=== PATIENT | female | born 1985 | race Asian ===

== ENCOUNTER 2023-09-02 10:21 | Emergency (ER) | payer OTHER, SELFPAY ==
[2023-09-02 10:33] VITALS: BP 113/66
[2023-09-02 11:02] LABS: Urine Albumin Trace (Neg - Trace); Urine Bilirubin Negative (Negative); Urine Character Slightly Cloudy (Clear); Urine Color Yellow; Urine Glucose Negative (Negative); Urine Ketone Negative (Negative); Urine Leukocyte 2+ (Negative); Urine Nitrite Negative (Negative); Urine Occult Blood 2+ (Negative); Urine Urobilinogen Negative (Neg - 1+)
--- NOTE | 2023-09-02 11:03 | ED.GENMED ---
History of Present Illness
<PUSHPA Avila - Last Filed: 09/02/23 13:11>
General
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
Time Seen by Provider: 09/02/23 10:50
Travel History
Have you had any contact with someone who has COVID-19?: No
Do you have any symptoms of coronavirus? Fever > 100 degrees, chills, cough, shortness of breath, sore throat, loss of taste or smell, muscle aches, or headache?: No
History of Present Illness
History of Present Illness:
This is a 38 year old female with PMH of contact dermatitis who presents for vaginal rash x 5 days. She denies new products or inciting event. She reports she tried OTC Balmex with little relief. She describes the rash as itchy, painful, and
burning. She denies previous episodes similar to this. Patient admits to dysuria. She denies urinary frequency or urgency.
Past History
<PUSHPA Avila - Last Filed: 09/02/23 13:11>
Past History
ED Past Medical History: None
ED Past Surgical History: None
Social History
Tobacco: Non-smoker
Alcohol: None
<Peter Mao DO - Last Filed: 09/02/23 13:21>
Physical Exam
Physical Exam:
Physical Exam
General: no apparent distress, not acutely ill
Neck: No jaundice
Lungs: no acute respiratory distress.
, mild swelling of the labia no vesicular lesions
Neuro: alert and oriented. no focal neurological deficits
Skin: no rash
Psychiatric: well kept. interactive and cooperative
Extremities: no edema.
Course
<PUSHPA Avila - Last Filed: 09/02/23 13:11>
Orders/Labs/Results
Orders:
Orders
09/02/23 10:48
Test Result ONCE
09/02/23 10:55
Urinalysis Reflex To Culture Urgent
Date Specimen was Collected: 09/02/23
Time Specimen was Collected: 10:48
Urine Microscopic Reflex Cult Urgent
Urine,Hcg qualitative screen [HCG, Urine Qualitative Screen] Urgent
Date Specimen was Collected: 09/02/23
Time Specimen was Collected: 10:48
Chlamydia/GC by PCR Urgent
[facility] Source: U
Specimen Description:
Source:: URINE
Date Specimen was Collected: 09/02/23
Time Specimen was Collected: 10:48
Comment: ADDED
Urine Culture Urgent
[facility] Source: U
Specimen Description:
Date Specimen was Collected: 09/02/23
Time Specimen was Collected: 10:48
09/02/23 11:31
Add On- LAB Urgent
Tests Added?: urine gc/chlymdia
09/02/23 11:37
Bedside Glucose- Treatment ONCE
09/02/23 11:45
Fluconazole [Diflucan] 150 mg PO NOW STA
Abnormal Lab Results
09/02/23
10:55
Ur Occult Blood Reflex 2+ A
(Negative)
Leukocyte Esterase Rfl 2+ A
(Negative)
Urine RBC 3-6 A /HPF
(0-2)
Urine WBC (Reflex) 60-70 A /HPF
(0-5)
Urine Bacteria (Reflex) Many A
(Negative)
Vital Signs
Initial and Last Documented VS:
Initial Vital Signs
Temp Pulse Resp BP Pulse Ox
98.7 F 90 18 113/66 99
09/02/23 10:33 09/02/23 10:33 09/02/23 10:33 09/02/23 10:33 09/02/23 10:33
Last Documented Vital Signs
Temp Pulse Resp BP Pulse Ox
98.7 F 90 18 113/66 99
09/02/23 10:33 09/02/23 10:33 09/02/23 10:33 09/02/23 10:33 09/02/23 10:33
<Peter Mao, DO - Last Filed: 09/02/23 13:21>
Orders/Labs/Results
Orders:
Orders
09/02/23 10:48
Test Result ONCE
09/02/23 10:55
Urinalysis Reflex To Culture Urgent
Date Specimen was Collected: 09/02/23
Time Specimen was Collected: 10:48
Urine Microscopic Reflex Cult Urgent
Urine,Hcg qualitative screen [HCG, Urine Qualitative Screen] Urgent
Date Specimen was Collected: 09/02/23
Time Specimen was Collected: 10:48
Chlamydia/GC by PCR Urgent
[facility] Source: U
Specimen Description:
Source:: URINE
Date Specimen was Collected: 09/02/23
Time Specimen was Collected: 10:48
Comment: ADDED
Urine Culture Urgent
[facility] Source: U
Specimen Description:
Date Specimen was Collected: 09/02/23
Time Specimen was Collected: 10:48
09/02/23 11:31
Add On- LAB Urgent
Tests Added?: urine gc/chlymdia
09/02/23 11:37
Bedside Glucose- Treatment ONCE
09/02/23 11:45
Fluconazole [Diflucan] 150 mg PO NOW STA
Abnormal Lab Results
09/02/23
10:55
Ur Occult Blood Reflex 2+ A
(Negative)
Leukocyte Esterase Rfl 2+ A
(Negative)
Urine RBC 3-6 A /HPF
(0-2)
Urine WBC (Reflex) 60-70 A /HPF
(0-5)
Urine Bacteria (Reflex) Many A
(Negative)
Vital Signs
Initial and Last Documented VS:
Initial Vital Signs
Temp Pulse Resp BP Pulse Ox
98.7 F 90 18 113/66 99
09/02/23 10:33 09/02/23 10:33 09/02/23 10:33 09/02/23 10:33 09/02/23 10:33
Last Documented Vital Signs
Temp Pulse Resp BP Pulse Ox
98.7 F 90 18 113/66 99
09/02/23 10:33 09/02/23 10:33 09/02/23 10:33 09/02/23 10:33 09/02/23 10:33
<PUSHPA Avila - Last Filed: 09/02/23 13:11>
*Critical Care Note
Total Time (30-74mins, 75-104mins- exclusive of procedures): Not Applicable
<PUSHPA Avila - Last Filed: 09/02/23 13:11>
Update Note
Update Note:
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 Patient reports similar episode x 4 years ago that was resolved with 1 pill regimen. History and physical consistent with candidiasis. Treat with Diflucan.
ED Attending Note
<PUSHPA Avila - Last Filed: 09/02/23 13:11>
-
Portions of this chart may have been created with voice recognition software.� Occasional wrong word or��sound alike� substitutions may have occurred due to the inherent limitations of voice recognition software.
<Peter Mao DO - Last Filed: 09/02/23 13:21>
ED Attending Note
Patient seen and examined by attending physician: Yes
I performed the substantive portion of visit, reviewed & personally made and approve the management plan that is documented in note by myself or ALVARADO.: Yes
ED Attending Note:
Seen with student examined independently student was able to ascertain full history through the [employer] database admin patient has some vaginal discharge and swelling, history of the same treated with a sounds like Diflucan she is with her , no
lesions that look like herpes urine noted
Discharge Plan
Departure
Patient Disposition: Home (Routine Discharge)
Date of Disposition: 09/02/23
Time of Disposition: 11:38
Patient with high blood pressure during this ER visit?: No
Condition: Good
Discharge Problem:
Yeast dermatitis
Instructions: Yeast Infection (DC)
Prescriptions:
No Action
clobetasol 0.05 % cream
1 applic topical BID 14 Days Qty: 30 0RF
calamine phenolated Lotion
1 applic topical TID PRN (Reason: itching) Qty: 180 0RF
hydroxyzine HCl 25 mg tablet
25 mg PO BID PRN (Reason: itching) Qty: 14 0RF
prednisone 10 mg tablet
See Rx Instructions .ROUTE .COMPLEX Qty: 45 0RF
Rx Instructions:
5 tabs day 1-3, 4 tabs day 4-6, 3 tabs day 7-9, 2 tabs day 10-12, 1 tab day 13-15
Referrals:
Alfonzo Smith MD [Family Provider] - Next open appointment
Interventions
Interventions:
*Risk Screen - Suicide Last Done: 09/02/23 13:02
*General Assessment Last Done: 09/02/23 13:02
*Neglect/Abuse Screening Last Done: 09/02/23 13:02
*ED COVID-19 Vaccine History Last Done: 09/02/23 13:02
*Nursing Disposition Last Done: 09/02/23 13:03
ED-Female Genitourinary Assessment Last Done: 09/02/23 13:02
Discharge Date and Time
Discharge Date/Time: 09/02/23 13:04
[2023-09-02 11:09] LABS: HCG, Urine Qualitative Screen Negative
[2023-09-02 11:18] LABS: Urine White Cell 60-70 /HPF (0-5)
[2023-09-02 11:19] LABS: Urine Bacteria Many (Negative)
[2023-09-02 11:21] LABS: Urine Squamous Cell >30 /LPF (Few)
[2023-09-02] MEDS: DIFLUCAN 150 MG PO (12:25)
[2023-09-02 12:28] LABS: Glucose - Point of Care 79 mg/dl (70-99)
== END 2023-09-02 13:04 | disposition home or self-care (01) ==
LOC: EMR 10:21
PROVIDERS: EMERGENCY PHYSICIAN Emergency Medicine; FAMILY PHYSICIAN Internal Medicine
DX: B37.31 Acute candidiasis of vulva and vagina (principal); R30.0 Dysuria; N89.8 Other specified noninflammatory disorders of vagina
CPT/HCPCS: 99283; 81003; 81015; 81025; 82962; 87086; 87491; 87591